=== PATIENT | male | born 1990 ===

== ENCOUNTER 2022-08-27 16:20 | Emergency (ER) | payer MEDICAID ==
[~2022-08-27] VITALS: Ht 170.2 cm; Wt 100.0 kg
[2022-08-27 18:39] LABS: EOSINOPHILS % (AUTO) 0.1 % (0-6); MONOCYTES # (AUTO) 0.6 X10'3 (0-0.9); NEUTROPHILS # (AUTO) 8.9 X10'3 (1.8-7.7)
[2022-08-27 18:40] LABS: BASOPHILS % (AUTO) 0.2 % (0-1); HEMATOCRIT 50.9 % (42.0-52.0); LYMPHOCYTES # (AUTO) 1.3 X10'3 (1.1-4.8); LYMPHOCYTES % (AUTO) 11.7 % (21-51); MEAN CORPUSCULAR HEMOGLOBIN 29.9 PG (27.0-31.0); MEAN CORPUSCULAR HGB CONC 35.3 g/dL (33.0-36.5); MEAN CORPUSCULAR VOLUME 84.9 FL (78-98); MEAN PLATELET VOLUME 6.6 FL (7.4-10.4); MONOCYTES % (AUTO) 5.4 % (2-12); NEUTROPHILS % (AUTO) 82.6 % (42-75); PLATELET COUNT 240 X10'3 (140-440); WHITE BLOOD COUNT 10.7 X10'3 (4.5-11.0)
[2022-08-27 18:53] LABS: ALANINE AMINOTRANSFERASE 77 U/L (12-78); ALBUMIN 4.2 G/DL (3.4-5.0); ALKALINE PHOSPHATASE 102 IU/L (46-116); ANION GAP 9 (8-16); ASPARTATE AMINO TRANSFERASE 41 U/L (10-37); BILIRUBIN,TOTAL 0.7 MG/DL (0.1-1.0); BLOOD UREA NITROGEN 10 MG/DL (7-18); BUN/CREATININE RATIO 11.2 (5.4-32.0); CALCIUM 9.4 MG/DL (8.5-10.1); CHLORIDE 102 MMOL/L (99-107); CREATININE 0.89 MG/DL (0.60-1.10); GLUCOSE 141 MG/DL (70-104); SODIUM 137 MMOL/L (135-145); TOTAL CARBON DIOXIDE 25.7 MMOL/L (24-32); TOTAL PROTEIN 8.5 G/DL (6.4-8.2); eGFR > 90 ML/MIN
[2022-08-27 19:01] LABS: LIPASE 2626 U/L (73-393)
[2022-08-27] MEDS ORDERED: famotidine/PF 10 mg/ml inj IV ONE (20:20)
[2022-08-27] MEDS ORDERED: normal saline 1000ML IV soln IV ONE (20:20)
[2022-08-27] MEDS ORDERED: ketorolac trometh. 30mg/ml inj. IV ONE (20:20)
[2022-08-27] MEDS ORDERED: morphine 4 MG/ML inj SYRINge IV ONE (20:20)
--- NOTE | 2022-08-27 20:39 | NUR ---
Patient to CT
[2022-08-27] MEDS ORDERED: ondansetron/PF 4mg/2ml inj IV ONE ×2 (20:50→22:20)
--- NOTE | 2022-08-27 21:33 | NUR ---
Patient resting comfortably after Zofran and Morphine given.
--- NOTE | 2022-08-27 21:57 | NUR ---
Patient reports feeling nauseous and anxious after Morphine, says pain is back 7/10. I will advise
[2022-08-27 21:59] LABS: TOTAL CELLS COUNTED 100
[2022-08-27 22:00] LABS: PLATELET ESTIMATE NORMAL; SMUDGE CELLS 1+
[2022-08-27] MEDS ORDERED: fentaNYL/PF 50MCG/1 ML 2ML syringe IV ONE (22:10)
--- NOTE | 2022-08-27 22:17 | NUR ---
Per MELISSA Magallanes ok to give Zofran 4mg IV now
[2022-08-27] MEDS ORDERED: oxyCODONE/APAP 5-325mg tablet PO ONE (22:20)
[2022-08-27 22:46] LABS: CLARITY,URINE SLIGHTLY CLOUDY (Clear); COLOR,URINE YELLOW (Yellow); GLUCOSE, URINE NEGATIVE (Neg); KETONES,URINE TRACE mg/dl (Neg); LEUKOCYTE ESTERASE ,URINE NEGATIVE (Neg); NITRITES, URINE NEGATIVE (Neg); OCCULT BLOOD,URINE NEGATIVE (Neg); PROTEIN,URINE 30 mg/dl (Neg); UROBILINOGEN,URINE 0.2 E.U/dL (0.2-1.0)
[2022-08-27 22:51] LABS: UA COLLECTION TYPE NON-SPECIFIED
[2022-08-27 22:52] LABS: BACTERIA,URINE NONE SEEN /HPF (Neg); MUCUS STRANDS MODERATE /LPF (Neg); RBC,URINE 0-2 /HPF (0-2); SQUAMOUS EPITHELIAL CELL,UR FEW /LPF (FEW); TRANSITIONAL EPI CELLS,URINE FEW /HPF; WBC,URINE 0-4 /HPF (0-4)
[2022-08-27 22:53] LABS: AMORPHOUS URATES 1+
[2022-08-27] MEDS ORDERED: NAPR-56 PO (23:10)
[2022-08-27] MEDS ORDERED: PROC25SU31 RC (23:10)
[2022-08-27] MEDS ORDERED: OXYC-145 PO (23:10)
[2022-08-27] MEDS ORDERED: proCHLORperazine 10 MG/2 ml inj IV ONE (23:10)
[2022-08-27] MEDS ORDERED: ONDA4TAB12 PO (23:10)
[2022-08-28] VITALS: BP 126/83
== END 2022-08-28 00:09 | disposition home or self-care (01) ==
LOC: ER 16:21
DX: K85.90 Acute pancreatitis without necrosis or infection, unspecified (principal); F10.10 Alcohol abuse, uncomplicated; Y90.9 Presence of alcohol in blood, level not specified
CPT/HCPCS: 36415; 74176; 80053; 81001; 83690; 85007; 85025; 96361; 96374; 96375; 96376; 99285; J0780; J1885; J2270; J2405; J3010; J3490; J7030